=== PATIENT | female | born 1985 | race Caucasian/White ===

== ENCOUNTER 2016-06-21 19:53 | Outpatient (CLI) | payer BC ==
[~2016-06-21] VITALS: Ht 167.6 cm; Wt 100.0 kg
[~2016-06-21 19:53] MED LIST: ACETAMINOPHEN500 MG PO; FLEXERIL5 MG PO; FLOMAX0.4 MG PO; Feosol PO; KEFLEX500 MG PO; MACROBID100 MG PO; MOTRIN600 MG PO; MOTRIN800 MG PO; Motrin PO; NITROFURANTOIN100 M3 PO; NITROFURANTOIN50 MG PO; NORCO 5/3251 TABLET PO; Natalcare Rx,Pramile PO; PERCOCET 5/31 TABLET PO; PRENATAL TABLE1 EAC3 PO; Percocet 5/325,Endoc PO; TRI-ESTARYLLA1 EACH PO; URIBEL CAPSULE1 EACH PO; VALTREX1000 MG PO; ZYRTEC10 M2 PO
[2016-06-21 20:21] VITALS: BP 117/66
[2016-06-21 20:49] LABS: MCH 25.9 PG (29.0-34.0); MCHC 31.9 G/DL (30.0-36.0); MCV 81.2 FL (83-99); MEAN PLAT.VOLUME 9.8 uM^3 (9.5-12.4); PLATELET COUNT 177 K/uL (156-360); RBC DIS.WIDTH-CV 14.1 % (11.8-14.6); RBC DIS.WIDTH-SD 41.3 % (39-53); RED BLOOD COUNT 3.82 M/uL (3.80-5.20); WHITE BLOOD COUNT 14.7 K/uL (4.1-10.2)
[2016-06-21 20:53] LABS: ADD MIUA? YES; BILIRUBIN NEGATIVE; BLOOD LARGE; COLOR YELLOW ((YELLOW)); GLUCOSE (STRIP) NEGATIVE; KETONES NEGATIVE; LEUKOCYTES TRACE; NITRITE NEGATIVE; PROTEIN (STRIP) 30; SPECIFIC GRAVITY 1.011 (1.000-1.030); UROBILINOGEN 0.2 MG/DL (0.2-1.0)
[2016-06-21 20:57] LABS: EOSINOPHIL (%) 1.6 % (0-5); EOSINOPHIL COUNT 0.2 K/uL (0-0.3); IMMATURE GRANULOCYTE (%) 1.1 % (0.0-0.7); IMMATURE GRANULOCYTE COUNT 0.2 K/uL; LYMPHOCYTE COUNT 3.5 K/uL (1.0-2.8); MONOCYTE (%) 7.7 % (3-12); MONOCYTE COUNT 1.1 K/uL (0-0.8); NEUTROPHIL (%) 65.7 % (45-76); NEUTROPHIL COUNT 9.7 K/uL (1.8-6.4)
[2016-06-21 21:08] LABS: BACTERIA NONE SEEN /HPF; CASTS NONE SEEN /LPF; CRYSTALS NONE SEEN; EPITHELIAL CELLS NONE SEEN /HPF; MUCUS NONE SEEN /LPF; RED BLOOD CELLS TNTC /HPF (0-5); UCUL ADDED? NO; WHITE BLOOD CELLS 0-5 /HPF (0-5)
[2016-06-21 21:24] VITALS: BP 118/61
[2016-06-21] MEDS ORDERED: MACROBID100 MG PO (21:55)
[2016-06-21] MEDS ORDERED: ZOLOFT50 MG PO (21:56)
[2016-06-21] MEDS ORDERED: ZYRTEC10 M3 PO (21:56)
[2016-07-10] MEDS ORDERED: FIBER GUMMIES1 EACH PO (12:22)
[2016-07-10] MEDS ORDERED: CRANBERRY500 M2 PO (12:22)
[2016-07-10] MEDS ORDERED: MACRODANTIN50 M1 PO (12:22)
== END 2016-06-21 22:20 | disposition home or self-care (01) ==
LOC: LDRP-OP 19:53 → 2WEST 19:54
PROVIDERS: Nurse Practitioner
DX: O26.93 Pregnancy related conditions, unspecified, third trimester (principal); R31.9 Hematuria, unspecified; Z3A.35 35 weeks gestation of pregnancy
CPT/HCPCS: 59025; 76770; 81003; 85025; G0378

== ENCOUNTER 2016-07-15 05:16 | Inpatient (IN) | payer BC ==
[2016-07-15] VITALS (9 sets, daily range): BP systolic 105–134; BP diastolic 52–63
[~2016-07-15] VITALS: Ht 167.6 cm; Wt 102.3 kg
[~2016-07-15 05:16] MED LIST changes: +CRANBERRY500 M2 PO; +FIBER GUMMIES1 EACH PO; +MACRODANTIN50 M1 PO; +ZOLOFT50 MG PO; +ZYRTEC10 M3 PO
[2016-07-15 06:14] LABS: EOSINOPHIL (%) 2.1 % (0-5); EOSINOPHIL COUNT 0.3 K/uL (0-0.3); IMMATURE GRANULOCYTE (%) 1.4 % (0.0-0.7); IMMATURE GRANULOCYTE COUNT 0.2 K/uL; INSTRUMENT ABS NEUTROPHIL CT 8.7 K/uL; LYMPHOCYTE COUNT 3.4 K/uL (1.0-2.8); MCH 26.3 PG (29.0-34.0); MCHC 32.2 G/DL (30.0-36.0); MCV 81.6 FL (83-99); MEAN PLAT.VOLUME 9.2 uM^3 (9.5-12.4); MONOCYTE (%) 9.2 % (3-12); MONOCYTE COUNT 1.3 K/uL (0-0.8); NEUTROPHIL (%) 62.6 % (45-76); NEUTROPHIL COUNT 8.7 K/uL (1.8-6.4); PLATELET COUNT 188 K/uL (156-360); RBC DIS.WIDTH-CV 14.5 % (11.8-14.6); RBC DIS.WIDTH-SD 41.9 % (39-53); RED BLOOD COUNT 3.92 M/uL (3.80-5.20); WHITE BLOOD COUNT 13.9 K/uL (4.1-10.2)
[2016-07-16 03:15] VITALS: BP 99/55
[2016-07-16 06:19] LABS: BASOPHIL COUNT 0.1 K/uL (0-0.1); EOSINOPHIL (%) 1.1 % (0-5); EOSINOPHIL COUNT 0.2 K/uL (0-0.3); HEMATOCRIT 29.6 % (36.0-46.0); IMMATURE GRANULOCYTE COUNT 0.2 K/uL; INSTRUMENT ABS NEUTROPHIL CT 11.9 K/uL; LYMPHOCYTE COUNT 3.5 K/uL (1.0-2.8); MCH 25.7 PG (29.0-34.0); MCHC 31.1 G/DL (30.0-36.0); MCV 82.7 FL (83-99); MEAN PLAT.VOLUME 10.3 uM^3 (9.5-12.4); MONOCYTE (%) 7.7 % (3-12); MONOCYTE COUNT 1.3 K/uL (0-0.8); NEUTROPHIL (%) 69.5 % (45-76); NEUTROPHIL COUNT 11.9 K/uL (1.8-6.4); PLATELET COUNT 202 K/uL (156-360); RBC DIS.WIDTH-CV 14.8 % (11.8-14.6); RBC DIS.WIDTH-SD 43.4 % (39-53); RED BLOOD COUNT 3.58 M/uL (3.80-5.20); WHITE BLOOD COUNT 17.2 K/uL (4.1-10.2)
[2016-07-16 07:32] VITALS: BP 115/55
[2016-07-16 10:46] VITALS: BP 102/52
[2016-07-16 15:34] VITALS: BP 105/53
[2016-07-16 19:00] VITALS: BP 110/69
[2016-07-16 23:15] VITALS: BP 109/53
[2016-07-17 02:58] VITALS: BP 117/55
[2016-07-17 07:24] VITALS: BP 105/53
[2016-07-17] MEDS ORDERED: PERCOCET 5/31 TABLET PO (09:47)
[2016-07-17] MEDS ORDERED: MOTRIN800 MG PO (09:47)
== END 2016-07-17 11:25 | disposition home or self-care (01) | DRG 765 ==
LOC: 2WEST 05:16 → 2SOUTH 08:44 → 2WEST 07-17 11:25
PROVIDERS: Obstetrics & Gynecology
PROC: 10D00Z1 Extraction of Products of Conception, Low, Open Approach (ICD-10-PCS; principal; 2016-07-15)
DX: O34.211 Maternal care for low transverse scar from previous cesarean delivery (principal); O69.81X0 Labor and delivery complicated by cord around neck, without compression, not applicable or unspecified; O21.8 Other vomiting complicating pregnancy; O99.214 Obesity complicating childbirth; E66.9 Obesity, unspecified; Z68.36 Body mass index [BMI] 36.0-36.9, adult; O99.89 Other specified diseases and conditions complicating pregnancy, childbirth and the puerperium; N13.2 Hydronephrosis with renal and ureteral calculous obstruction; Z37.0 Single live birth; Z3A.39 39 weeks gestation of pregnancy
CPT/HCPCS: 85025; 86850; 86900; 86901; J0690; J1100; J2270; J2274; J2405; J3010; J7120